=== PATIENT | female | born 1970 | race Caucasian/White ===

== ENCOUNTER 2021-09-01 13:47 | Emergency (ER) | payer OTHER, SELFPAY ==
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
[2021-09-01 13:49] VITALS: BP 123/95; PULSE 78; RESP 17; TEMP 36.1; O2SAT 100
[2021-09-01 14:11] VITALS: BP 120/70; PULSE 80; RESP 20; TEMP 36.7; O2SAT 100
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
[2021-09-01] MEDS: KETOROLAC (*BKC) 60 MG/2 ML VIAL IM (15:42)
== END 2021-09-01 17:38 | disposition home or self-care (01) ==
PROVIDERS: Emergency Provider Emergency Medicine; PCP Physician Assistant
DX: S39.012A Strain of muscle, fascia and tendon of lower back, initial encounter (principal); G62.9 Polyneuropathy, unspecified; M51.9 Unspecified thoracic, thoracolumbar and lumbosacral intervertebral disc disorder; V49.40XA Driver injured in collision with unspecified motor vehicles in traffic accident, initial encounter
CPT/HCPCS: 72128; 72131; 96372; 99284; J1885

== ENCOUNTER 2022-10-12 10:54 | Emergency (ER) | payer MEDICAID, SELFPAY ==
--- NOTE | 2022-10-12 10:54 | ED.URI ---
HPI - URI/Sore Throat General Chief Complaint: Upper Respiratory Infection Stated Complaint: Ears/Sinus Time Seen by Provider: 10/12/22 10:54 Source: patient Mode of arrival: ambulatory Limitations: no limitations History of Present Illness HPI Narrative: [place] is a 52-year-old female patient presenting to clinic today with complaints of sinus congestion and bilateral ear pain times 2-3 months. She reports she has had chills and hot sweats. She denies any known fever. MD elicited complaint: nasal congestion and sinus pain Related Data Allergies Allergy/AdvReac Type Severity Reaction Status Date / Time codeine Allergy Intermediate Nausea and Verified 10/12/22 11:06 Vomiting Review of Systems Review of Systems: Pertinent positives per HPI. Patient denies any fever, chills, rash, visual changes, dizziness, cough, shortness of breath, chest pain, palpitations, nausea, vomiting, diarrhea, constipation, abdominal pain, or any urinary issues. [facility] Past Medical History Medical History History of anxiety History of neuropathy Social History Social History Smoking status: Former smoker Comments At the time of my signature, I reviewed and agree with the nursing past medical, surgical, social, and family history. There is no relevant family history pertinent to the patient complaint. Exam Narrative: General: Well-developed, well nourished, in no apparent distress Head: Normocephalic, atraumatic Eyes: Pupils equally round and reactive to light bilaterally, EOM intact, sclera and conjunctive clear, no discharge, lids normal Ears: TMs intact and dull, ear canals clear, no drainage, grossly hearing normal. Nose: Nares patent, green nasal discharge, severe inflammation, maxillary and frontal sinus tenderness. Mouth: Oral pharynx without lesions or masses, good dentition, MMM. Postnasal drip Neck: Supple, trachea midline, no enlargement of anterior or posterior cervical nodes, no thyroid masses or goiter palpable. Cardio: Regular rate and rhythm, s1 and s2 normal, no murmur appreciated. Resp: Clear to auscultation bilaterally, no rhonchi, rales, wheezing or rubs Course Course Emergency Course: Portions of this record may have been created with voice recognition software. Level of Care: Express Care Visit Vital Signs Vital signs: Vital Signs Temperature 36.8 C 10/12/22 11:02 Pulse Rate 96 10/12/22 11:02 Respiratory Rate 16 10/12/22 11:02 Blood Pressure 130/80 10/12/22 11:02 Pulse Oximetry 98 10/12/22 11:02 Oxygen Delivery Room Air 10/12/22 11:02 Temperature 36.8 C 10/12/22 11:02 Pulse Rate 96 10/12/22 11:02 Respiratory Rate 16 10/12/22 11:02 Blood Pressure 130/80 10/12/22 11:02 Pulse Oximetry 98 10/12/22 11:02 Oxygen Delivery Room Air 10/12/22 11:02 Vital signs reviewed MDM - URI/Sore Throat MDM Narrative Medical decision making narrative: At the time of visit patient is resting comfortably on the exam table. I suspect patient has acute bacterial rhinosinusitis. Prescription for Augmentin and prednisone was sent to the pharmacy and supportive measures were discussed with the patient she voiced understanding discharge instructions Differential Diagnosis Differential diagnosis: Likely upper respiratory infection, otitis media, sinusitis, viral infection, bronchitis, influenza, pharyngitis and other (COVID) Discharge Plan Discharge Clinical Impression: Acute bacterial rhinosinusitis Patient Disposition: Home, Self-Care Condition: Stable Instructions: Antibiotic Form, Rhinosinusitis (ED) Additional Instructions: Take prescription medications only as prescribed-Augmentin and prednisone Increase fluids and stay well hydrated Tylenol/motrin for pain/fever Flonase and OTC antihistamines as directed Vicks vapor rub to open s
[2022-10-12 11:02] VITALS: BP 130/80; PULSE 96; RESP 16; TEMP 36.8; O2SAT 98
== END 2022-10-12 11:11 | disposition home or self-care (01) ==
LOC: EXPCOLL 10:56
PROVIDERS: Emergency Provider Nurse Practitioner Family; PCP Physician Assistant
DX: J01.90 Acute sinusitis, unspecified (principal)
CPT/HCPCS: 99213; G0463

== ENCOUNTER 2022-10-22 12:41 | Emergency (ER) | payer MEDICAID, SELFPAY ==
[2022-10-22 12:48] VITALS: BP 116/77; PULSE 91; RESP 16; TEMP 37; O2SAT 99
--- NOTE | 2022-10-22 13:17 | ED.URI ---
HPI - URI/Sore Throat General Chief Complaint: Upper Respiratory Infection Stated Complaint: uri Time Seen by Provider: 10/22/22 13:07 Source: patient Mode of arrival: ambulatory Limitations: no limitations History of Present Illness HPI Narrative: patient is a 52-year-old female presenting sinus congestion, bilateral ear pain, headache and cough. Patient was seen and treated on the with Augmentin prednisone. States she has not improved. Also taken Tylenol for headache Related Data Allergies Allergy/AdvReac Type Severity Reaction Status Date / Time codeine Allergy Intermediate Nausea and Verified 10/22/22 12:45 Vomiting Review of Systems Review of Systems: CONSTITUTIONAL: Denies malaise, chills, sweats, or fever.? EYES: Denies visual changes, redness, or discharge.? ENT: Reports rhinorrhea, congestion, sinus pain, otalgia and sore throat.? CARDIOVASCULAR: Denies chest pain, palpitations, or edema.? RESPIRATORY: Reports cough.? Denies dyspnea.? GASTROINTESTINAL: Denies abdominal pain, nausea, vomiting, diarrhea? SKIN: Denies rash or itching.? MUSCULOSKELETAL: Denies myalgia.? NEUROLOGIC: Denies headache All systems reviewed & are unremarkable except as noted in HPI and below PMFSH Past Medical History Medical History History of anxiety History of neuropathy Social History Social History Smoking status: Former smoker Comments At time of signature, agree with nursing past medical, surgical, social and family history. There is no relevant family history pertinent to the presenting complaint? Exam Narrative: GENERAL: Well-appearing, well-nourished, and in no acute distress.? HEAD: Normocephalic, atraumatic.? EYES: PERRLA, conjunctivae clear, and EOMI. No nystagmus.? ENT: Nares clear, turbinates pink, no rhinorrhea or epistaxis. Mucous membranes moist. TM pearly grewal with dull light reflex bilaterally; no tragal tenderness. Oropharynx with erythema without lesions. Tonsils not enlarged and without exudate.? uvula midline NECK: Supple. No lymphadenopathy. CHEST: No respiratory distress. Clear to auscultation.? No bony deformities, no asymmetry. Speaks in full sentences.? HEART: Regular rate and rhythm. No murmur heard. ? ABDOMEN: Soft, nontender, nondistended EXTREMITIES: Normal range of motion. No edema. ? SKIN: Warm, dry, no rash.? NEURO: Alert and oriented x3. No focal deficits. PSYCH: Normal mood and affect? Course Course Emergency Course: Patient is aware of diagnosis, understands and agrees to treatment plan.? Anticipatory guidance given.? Patient agrees to follow-up as directed and is aware of reasons to seek care at the emergency department.? Portions of this record may have been created with voice recognition software? Level of Care: Express Care Visit Vital Signs Vital signs: Vital Signs Temperature 37.0 C 10/22/22 12:48 Pulse Rate 91 10/22/22 12:48 Respiratory Rate 16 10/22/22 12:48 Blood Pressure 116/77 10/22/22 12:48 Pulse Oximetry 99 10/22/22 12:48 Oxygen Delivery Room Air 10/22/22 12:48 Temperature 37.0 C 10/22/22 12:48 Pulse Rate 91 10/22/22 12:48 Respiratory Rate 16 10/22/22 12:48 Blood Pressure 116/77 10/22/22 12:48 Pulse Oximetry 99 10/22/22 12:48 Oxygen Delivery Room Air 10/22/22 12:48 Reviewed MDM - URI/Sore Throat MDM Narrative Medical decision making narrative: Differential diagnosis considered: Oleary virus, strep pharyngitis, allergic rhinitis, upper respiratory tract infection, sinusitis, rhinosinusitis, nasopharyngitis. viral pharyngitis, otitis media, otitis externa, pneumonia, bronchitis, viral cough syndrome, viral syndrome, and influenza.? Exam findings show no acute concerns or changes; patient is non-toxic appearing and is in no distress. Patient is appropriate for outpatient treatment and follow-up.? Lab D
== END 2022-10-22 13:33 | disposition home or self-care (01) ==
PROVIDERS: Emergency Provider Nurse Practitioner Family
DX: J06.9 Acute upper respiratory infection, unspecified (principal); Z87.891 Personal history of nicotine dependence
CPT/HCPCS: 99213; G0463